=== PATIENT | male | born 1970 | race Caucasian/White ===

== ENCOUNTER 2017-12-14 20:03 | Emergency (ER) | payer OTHER ==
[~2017-12-14] VITALS: Ht 182.9 cm; Wt 125.0 kg
[2017-12-15] MEDS ORDERED: IBUPROFEN 800MG TABLET PO ONE (00:30)
[2017-12-15 01:07] VITALS: BP 150/112
== END 2017-12-15 02:06 | disposition home or self-care (01) ==
LOC: ER 20:31
DX: S49.80XA Other specified injuries of shoulder and upper arm, unspecified arm, initial encounter (principal); S52.135A Nondisplaced fracture of neck of left radius, initial encounter for closed fracture; S52.125A Nondisplaced fracture of head of left radius, initial encounter for closed fracture; W19.XXXA Unspecified fall, initial encounter; Y93.01 Activity, walking, marching and hiking; Y92.480 Sidewalk as the place of occurrence of the external cause; F17.200 Nicotine dependence, unspecified, uncomplicated; Z88.0 Allergy status to penicillin; Z88.2 Allergy status to sulfonamides; Z88.5 Allergy status to narcotic agent
CPT/HCPCS: 73080; 73090; 93005; 99284